=== PATIENT | female | born 1995 | race Caucasian/White ===

== ENCOUNTER 2021-03-24 12:04 | Emergency (ER) | payer OTHER, SELFPAY ==
[2021-03-24] MEDS ORDERED: Ketorolac Tromethamine 30 MG/ML VIAL ONE (13:55)
[2021-03-24] MEDS ORDERED: Diazepam 5 MG TAB ONE (13:55)
== END 2021-03-24 14:23 | disposition home or self-care (01) ==
LOC: ERS 12:04
DX: S20.212A Contusion of left front wall of thorax, initial encounter (principal); S40.022A Contusion of left upper arm, initial encounter; V43.52XA Car driver injured in collision with other type car in traffic accident, initial encounter
CPT/HCPCS: 71045; 96372; J1885